=== PATIENT | female | born 1955 | race Caucasian/White ===

== ENCOUNTER 2022-10-14 10:46 | Emergency (ER) | payer MEDICARE, SELFPAY ==
[2022-10-14 11:00] VITALS: BP 183/81; PULSE 62; RESP 20; TEMP 36.8; O2SAT 98; BMI 25.6
--- NOTE | 2022-10-14 11:25 | EXP.UTC ---
Discharge Plan Disposition Patient Disposition: Home, Self-Care Condition: Good Prescriptions Prescriptions: New azithromycin [Zithromax Z-Bertin] 250 mg tablet See Rx Instructions .ROUTE .COMPLEX 5 Days Qty: 6 0RF Rx Instructions: For 250 mg dose pack: take 500 mg today (day 1), then 250 mg for 4 days (days 2-5) methylprednisolone [Medrol (Bertin)] 4 mg tablets,dose pack See Rx Instructions .Route .COMPLEX 6 Days Qty: 21 0RF Rx Instructions: taper pack; guaifenesin [Mucinex] 600 mg tablet extended release 12hr 600 mg PO BID PRN (Reason: cough) Qty: 20 0RF No Action alprazolam 0.5 mg tablet 0.5 mg PO BIDP PRN (Reason: Anxiety) Label Comments: TAKE 1 TABLET BY MOUTH TWICE DAILY NEEDED montelukast 10 mg tablet 10 mg PO DAILY Label Comments: TAKE 1 TABLET BY MOUTH EVERY DAY albuterol sulfate 90 mcg/actuation HFA aerosol inhaler 2 puff INHALATION Q4HP PRN (Reason: SOA) Label Comments: INHALE 2 PUFFS BY MOUTH EVERY 4 HOURS NEEDED losartan 100 mg tablet 100 mg PO DAILY Label Comments: TAKE 1 TABLET BY MOUTH EVERY DAY atenolol 50 mg tablet 50 mg PO DAILY Label Comments: TAKE 1 TABLET BY MOUTH EVERY DAY Referrals Follow up/Referrals: Karo Hebert [Primary Care Provider] - See instructions Activity Restrictions/Add. Instructions Additional Instructions/Restrictions: Start antibiotic today. Be sure to complete entire prescription even if feeling better Monitor temp. Tylenol every 4 hours as needed and / or ibuprofen every 6 hours as needed ( As long as your primary care physician has told you that it ok to take both. For fever/aches/pains ER if no less than 101 despite Tylenol or Motrin Humidifier/vaporizer or hot steamy shower Inhaler every 4-6 hours as needed like we discussed. If unsure how to use it, ask pharmacist to demonstrate how. Should help open airways and improve cough, wheezing, and shortness of breath Mucinex for your cough Be sure to drink lots of water. *Start steroid today. Helps with inflammation therefore, cough and wheezing. Follow directions on the package. Reviewed side effects. Patient reports taking them before. Follow up IMMEDIATELY for new or worsening of symptoms OR no noticeable improvement over the next 48-72 hours. 911 immediately for any life threatening symptoms such as chest pain or difficulty breathing Clinical Impressions Clinical Impression: Sinusitis, Bronchitis Instructions Patient Instructions: DI for Sinusitis, Sinusitis, Acute Bronchitis Discharge ED Provider: Myrna Jesus [facility] [place] General Stated complaint: Drainage chest congestion SOA Wheezing Mode of Arrival: Ambulatory Source of Information: Patient Limitations: No Limitations Time Seen by Provider: 10/14/22 11:25 Description of Symptoms (Recalled from Triage Doc. by RN): PATIENT C/O SINUS CONGESTION/DRAINAGE, SOA AND WHEEZING X 2 WEEKS HEENT Symptoms (Recalled from RN notes): Yes Resp Symptoms (Recalled from RN notes): Yes Skin Symptoms (Recalled from RN notes): No MS Symptoms (Recalled from RN notes): No Functional Status (Recalled from RN notes): WNL History of Present Illness Provider Complaint: Patient states that she has been having sinus congestion and pressure and feels like it is moving into her chest States that she gets a bad sinus infection about once a year and has to come in and get zpack and steriods to help clear it up States that she wanted to get to it before it got really bad States that she has asthma and has been having a little wheezing on and off but has been using her inhaler States also she has been taking OTC sudafed but it hasnt helped much Related Data Home Medications Medication Instructions Recorded Confirmed albuterol sulfate 90 mcg/actuation 2 puff inhalation Q4HP PRN SOA 10/14/22 10/14/22 aerosol inhaler alprazolam 0.5 mg
[2022-10-14 11:40] VITALS: BP 183/81; PULSE 62; RESP 20; TEMP 36.8; O2SAT 98
== END 2022-10-14 11:46 | disposition home or self-care (01) ==
PROVIDERS: Emergency Provider Nurse Practitioner; PCP Family Medicine
DX: J32.9 Chronic sinusitis, unspecified (principal); J40 Bronchitis, not specified as acute or chronic
CPT/HCPCS: 99212; 99214; G0463